=== PATIENT | female | born 1985 | race Caucasian/White ===

== ENCOUNTER 2016-07-14 09:48 | Emergency (ER) | payer OTHER ==
[~2016-07-14] VITALS: Ht 157.5 cm; Wt 79.4 kg
[2016-07-14 09:53] VITALS: BP 141/86
--- NOTE | 2016-07-14 10:13 | ED INFLUENZA/URI COMPLAINT ---
History of Present Illness General Chief Complaint: Upper Respiratory Sx/Fever Stated Complaint: COUGH Source: patient Exam Limitations: no limitations Vital Signs & Intake/Output Vital Signs & Intake/Output Vital Signs Date Time Temp Pulse Resp B/P Pulse O2 O2 Flow FiO2 Ox Delivery Rate 07/14 0953 98.7 100 18 141/86 98 Room Air Allergies Coded Allergies: ibuprofen (Severe, difficulty swallowing and swelling 07/14/16) MDX - Juniper (JUNIPER) (UNKNOWN 05/19/11) MDX - Loratadine (From CLARITIN) (UNKNOWN 05/19/11) Reconcile Medications Albuterol Sulfate (Ventolin Hfa) 90 MCG HFA.AER.AD 2 PUF INH Q4-6 PRN PRN WHEEZING/SHORTNESS OF BREATH Azithromycin 250 MG TABLET 1 DP PO AD lung infection 2 the first day followed by 1 for days 2-5 Benzonatate (Tessalon Perle) 100 MG CAPSULE 1 CAP PO TID PRN COUGH Methylprednisolone. (Medrol) 4 MG TAB.DS.PK 1 DP PO AD breathing Triage Note: 31 YO FEMALE TO TRIAGE C/O PRODUCTIVE COUGH SINCE WEDNESDAY. STATES SPUTUM IS GREEN IN COLOR. C/P PRESSURE TO BILATERAL EARS STARTING TODAY. DENIES FEVERS. Triage Nurses Notes Reviewed? yes : No Patient currently breastfeeds: No HPI: Patient is a 31 year old female presents complaining of cough with green sputum production onset on Wednesday. Symptoms progressively worsening. Taking Nyquil with no improvement. Midsternal pain when coughing, no chest pain otherwise. Mild associated wheezing and shortness of breath. Cough is currently severe, pain is mild. Denies fevers, chills, nausea, vomiting. (ZACK PENNY) Past History Travel History Traveled to [place] past 21 day No Medical History Any Pertinent Medical History? 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 No (ZACK PENNY) Review of Systems Review of Systems Constitutional: Denies: chills, fever. EENTM: Reports: no symptoms. Respiratory: Reports: see HPI. Cardiovascular: Reports: chest pain (with cough). GI: Denies: abdominal pain, nausea, vomiting. Genitourinary: Reports: no symptoms. Musculoskeletal: Reports: no symptoms. Skin: Reports: no symptoms. Neurological/Psychological: Reports: no symptoms. Hematologic/Endocrine: Reports: no symptoms. Immunologic/Allergic: Reports: no symptoms. (ZACK PENNY) Physical Exam Physical Exam General Appearance: well developed/nourished, alert, awake Head: atraumatic, normal appearance Eyes: Bilateral: normal appearance, PERRL, EOMI. Ears, Nose, Throat: normal ENT inspection, moist mucous membrane, hearing grossly normal, Tympanic normal Neck: normal inspection, supple, full range of motion Respiratory: mild diffuse end expiratory wheezing. Midsternal tenderness that reproduces patient's pain. Cardiovascular: regular rate/rhythm Gastrointestinal: soft, non-tender Back: normal inspection, normal range of motion Extremities: normal inspection, normal capillary refill, normal range of motion, no edema Neurologic/Psych: no motor/sensory deficits, awake, alert, oriented x 3, normal gait, normal mood/affect Skin: intact, normal color, warm/dry Lymphatic: no anterior cervical renee Core Measures Severe Sepsis Present: No Septic Shock Present: No (ZACK PENNY) Progress Differential Diagnosis: influenza, pneumonia, sinusitis, bronchitis Plan of Care: Patient nontoxic appearing, no acute respiratory distress on exam. Oxygen saturation 98% on room air. Labs and imaging deferred secondary to exam, appears stable for outpatient management. Will treat empirically. Patient provided with information to establish a primary care doctor. Initial ED EKG: none (ZACK PENNY) Departure Departure Time of Disposition: 1024 Disposition: HOME OR SELF CARE Condition: Stable Clinical Impression Primary Impression: Bronchitis Referrals: KATHY HENSLEY,GIOVANY LANG MD,ELISABET [place]. PATIENT HAS NO PRIMARY CARE DR (PCP/Family) Additional Instructions: Drink plenty of fluids and rest. Follow up with one of the primary care doctors listed in your discharge paperwork to establish a doctor and for further evaluation. Call today for appointment. Return to the ER if breathing worsening, unable to stay hydrated or worsening of symptoms. Departure Forms: Customer Survey General Discharge Information Prescriptions: Current Visit Scripts Methylprednisolone. (Medrol) 1 DP PO AD #1 DP Benzonatate (Tessalon Perle) 1 CAP PO TID PRN COUGH #21 CAP Albuterol Sulfate (Ventolin Hfa) 2 PUF INH Q4-6 PRN PRN WHEEZING/SHORTNESS OF BREATH #1 INHAL Azithromycin 1 DP PO AD #6 TAB 2 the first day followed by 1 for days 2-5 (URBANO SETH,ZACK) PA/PROPERTY PORTFOLIO OFFICER Co-Sign Statement Statement: ED Attending supervision documentation- [] I saw and evaluated the patient. I have also reviewed all the pertinent lab results and diagnostic results. I agree with the findings and the plan of care as documented in the PA's/PROPERTY PORTFOLIO OFFICER's documentation. [X] I have reviewed the ED Record and agree with the PA's/PROPERTY PORTFOLIO OFFICER's documentation. [] Additions or exceptions (if any) to the PAs/PROPERTY PORTFOLIO OFFICER's note and plan are summarized below: [] (ULISES HENSLEY,REKHA)
[2016-07-14] MEDS ORDERED: VENTOLIN HFA18 GM INH (10:27)
[2016-07-14] MEDS ORDERED: AZITHROMYCIN250 M1 PO (10:27)
[2016-07-14] MEDS ORDERED: TESSALON PERLE100 M1 PO (10:27)
[2016-07-14] MEDS ORDERED: MEDROL4 M2 PO (10:27)
== END 2016-07-14 10:34 ==
LOC: ERH 09:48
DX: J40 Bronchitis, not specified as acute or chronic (principal)

== ENCOUNTER 2016-09-18 18:12 | Emergency (ER) | payer OTHER ==
[~2016-09-18] VITALS: Ht 157.5 cm; Wt 79.4 kg
[~2016-09-18 18:12] MED LIST: AZITHROMYCIN250 M1 PO; MEDROL4 M2 PO; TESSALON PERLE100 M1 PO; VENTOLIN HFA18 GM INH
--- NOTE | 2016-09-18 19:34 | ED EAR COMPLAINT ---
History of Present Illness General Chief Complaint: Ear Complaints Stated Complaint: EAR PAIN Source: patient Exam Limitations: no limitations Vital Signs & Intake/Output Vital Signs & Intake/Output Vital Signs Date Time Temp Pulse Resp B/P Pulse O2 O2 Flow FiO2 Ox Delivery Rate 09/18 2046 97.5 90 18 110/75 98 Room Air 09/18 2033 Room Air 09/18 1833 97.9 108 18 118/84 98 Room Air Allergies Coded Allergies: ibuprofen (Severe, difficulty swallowing and swelling 07/14/16) juniper tar (HIVES 09/18/16) loratadine (From CLARITIN) (HIVES 09/18/16) Reconcile Medications Amoxicillin/Potassium Clav (Augmentin 875-125 Tablet) 875 MG-125 MG TABLET 1 TAB PO BID OTITIS MEDIA Dextran 70/Hypromellose (Artificial Tears) 1 EACH DROPERETTE 1 DROP OPH PRN BOTH EYES (Reported) Diphenhydramine HCl (Benadryl) 25 MG CAPSULE 2 CAP PO BID RED EYES (Reported) Fluticasone Propionate (Flonase Allergy Relief) 50 MCG/ACTUATION SPRAY.SUSP 2 SPRAY LOGAN DAILY CONGESTION Triage Note: TRIAGE: RIGHT EAR PAIN, NASAL CONGESTION, RED EYES, SHAKING, FATIGUE. HEARING MUFFLED. DENIES FEVERS AT HOME, AFEBRILE IN TRIAGE. DENIES DIZZINESS. +N/-V/-D. REPORTS URINARY URGENCY, BUT DENIES PAIN. DENIES PAIN. Triage Nurses Notes Reviewed? yes Onset: Gradual Duration: constant Timing: recent history Severity: severe Severity Numbers: 7 : No Patient currently breastfeeds: No HPI: Patient is a 31-year-old female who presents to emergency room with a 2 day history of gradual onset of nasal congestion had congestion and right ear pain voice hoarseness. Patient also has complaining of generalized weakness fatigue and chills and body aches Positive sick contacts at home. Denies any sore throat cough chest pain shortness of breath neck pain neck stiffness (WALT ARREOLA) Past History Travel History Traveled to [place] past 21 day No Medical History Any Pertinent Medical History? 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 No (WALT ARREOLA) Review of Systems Review of Systems Constitutional: Reports: see HPI, chills. EENTM: Reports: see HPI, ear pain, nasal congestion. Denies: ear discharge, ear redness, throat pain, throat swelling. Respiratory: Reports: see HPI. Denies: cough. Cardiovascular: Reports: no symptoms. GI: Reports: see HPI. Genitourinary: Reports: no symptoms. Musculoskeletal: Reports: see HPI, joint pain. Skin: Reports: no symptoms. Neurological/Psychological: Reports: no symptoms. Hematologic/Endocrine: Reports: no symptoms. Immunologic/Allergic: Reports: no symptoms. All Other Systems: Reviewed and Negative (WALT ARREOLA) Physical Exam Physical Exam General Appearance: mild distress Ears: Left: canal normal, Tympanic normal. Right: Tympanic red. Comments: Well-developed well-nourished person in no acute distress HEENT:, extraocular motion intact, no nystagmus. Pupils equally round and reactive to light and accommodation. Nose is atraumatic. . Pharynx normal. No swelling or edema. Neck: Supple, no lymphadenopathy, normal range of motion without pain or tenderness Back: Nontender, no CVA tenderness. Cardiovascular: Regular rate and rhythms no murmurs rubs or gallops, normal JVP Respiratory: Chest nontender. No respiratory distress.breath sounds clear to auscultation bilaterally Abdomen: Soft, nontender nondistended, no appreciable organomegaly. Normal bowel sounds. No ascites Extremity: No edema, no calf tenderness to palpation, normal and equal pulses. Neuro: Alert oriented x3, motor sensory normal, Skin: No appreciable rash on exposed skin, skin is warm and dry. Psych: Mood and affect is normal, memory and judgment is normal. (WALT ARREOLA) Progress Differential Diagnoses I considered the following diagnoses in my evaluation of the patient: [Viral syndrome, sinusitis, , UTI, appendicitis, meningitis, mastoiditis, otitis media, otitis externa, pharyngitis,] Plan of Care: Orders Procedure Date/time Status URINE 09/19 1831 Complete URINALYSIS 09/19 1831 Complete Laboratory Tests 09/18/16 2001: Urine Color YEL, Urine Clarity HAZY H, Urine pH 6.0, Ur Specific [place] 1.020, Urine Protein NEG, Urine Ketones NEG, Urine Nitrite NEG, Urine Bilirubin NEG, Urine Urobilinogen 1.0, Ur Leukocyte Esterase SMALL H, Ur Microscopic SEDIMENT EXAMINED, Urine RBC RARE, Urine WBC 5-10 H, Ur Epithelial Cells MANY H, Urine Bacteria FEW H, Urine Hemoglobin NEG, Urine Glucose NEG, Urine Test NEGATIVE Patient has concerns of right sided otitis media. No abdominal point tenderness noted on exam. Urine cultures pending No concerns of meningitis patient is afebrile (WALT ARREOLA) Initial ED EKG: none (WALT ARREOLA) Departure Departure Disposition: HOME OR SELF CARE Condition: Stable Clinical Impression Primary Impression: Otitis media, right Referrals: KATHY HENSLEY,GIOVANY (PCP/Family) Additional Instructions: As discussed begin the prescription of Flonase for nasal congestion and Augmentin as directed for the full course. Begin [id number] Sudafed for congestion. Prescriptions waiting at [facility] pharmacy. Begin [id number] Tylenol for pain and inflammation in future fevers. Begin treating plenty of water for hydration. If no better on Wednesday follow-up with her primary care doctor. If symptoms worsen return to emergency room Departure Forms: Customer Survey General Discharge Information Prescriptions: Current Visit Scripts Amoxicillin/Potassium Clav (Augmentin 875-125 Tablet) 1 TAB PO BID #20 TAB Fluticasone Propionate (Flonase Allergy Relief) 2 SPRAY LOGAN DAILY #1 BOT (WALT ARREOLA) PA/PRESCHOOL PROGRAM DIRECTOR Co-Sign Statement Statement: ED Attending supervision documentation- [] I saw and evaluated the patient. I have also reviewed all the pertinent lab results and diagnostic results. I agree with the findings and the plan of care as documented in the PA's/PRESCHOOL PROGRAM DIRECTOR's documentation. [X] I have reviewed the ED Record and agree with the PA's/PRESCHOOL PROGRAM DIRECTOR's documentation. [] Additions or exceptions (if any) to the PAs/PRESCHOOL PROGRAM DIRECTOR's note and plan are summarized below: [] (ULISES HENSLEY,REKHA)
[2016-09-18] MEDS ORDERED: BENADRYL25 MG PO (20:05)
[2016-09-18] MEDS ORDERED: ARTIFICIAL TEA1 EACH OPH (20:06)
[2016-09-18] MEDS ORDERED: FLONASE ALLERG9.9 ML NAS (20:21)
[2016-09-18] MEDS ORDERED: AUGMENTIN 875-1 EACH PO (20:21)
[2016-09-18 20:47] VITALS: BP 110/75
== END 2016-09-18 21:00 ==
LOC: ERH 18:12
DX: H66.91 Otitis media, unspecified, right ear (principal)
CPT/HCPCS: 81001; 81025

== ENCOUNTER 2017-09-23 08:06 | Inpatient (IN) | payer OTHER ==
[~2017-09-23] VITALS: Ht 157.5 cm; Wt 102.5 kg
[~2017-09-23 08:06] MED LIST changes: +ARTIFICIAL TEA1 EACH OPH; +AUGMENTIN 875-1 EACH PO; +BENADRYL25 MG PO; +FLONASE ALLERG9.9 ML NAS
[2017-09-23] MEDS ORDERED: PRENATAL TABLE1 EAC2 PO (08:29)
[2017-09-23 09:06] LABS: ABSOLUTE BASOPHIL COUNT 0 /CUMM (0.0-0.2); ABSOLUTE EOSINOPHIL COUNT 0 /CUMM (0.0-0.7); ABSOLUTE GRANULOCYTE CT 6.9 /CUMM (1.4-6.5); ABSOLUTE LYMPH COUNT 1.1 /CUMM (1.2-3.4); ABSOLUTE MONOCYTE COUNT 0.4 /CUMM (0.10-0.60); BASOPHIL % 0.2 % (0.0-2.0); EOSINOPHIL % 0.3 % (0-5); GRANULOCYTE % 82.2 % (42.2-75.2); HEMATOCRIT 30.9 % (37-47); MEAN CORPUSCULAR HGB 27.2 PG (27.0-31.0); MEAN CORPUSCULAR HGB CONC 33.2 G/DL (33.0-37.0); MEAN PLATELET VOLUME 10.6 FL (7.4-10.4); RBC DISTRIBUTION WIDTH 14.5 % (11.5-14.5); RED BLOOD CELL CT 3.76 /CUMM (4.20-5.40); WHITE BLOOD CELL COUNT 8.3 /CUMM (4.8-10.8)
[2017-09-23 09:28] LABS: PLATELET COUNT 182 /CUMM (130-400)
--- NOTE | 2017-09-23 09:43 | History & Physical ---
General Information and HPI MD Statement: I have seen and personally examined GLORIA FERNANDO and documented this H&P. The patient is a 32 year old female at [41] weeks and [1] days gestation who presented with a chief complaint of [IOL]. Source of Information: patient Exam Limitations: no limitations History of Present Illness: 32yo, , 41 1/7wks, here for IOL due to postdate. she has no complaints today, denies ctxs, no VB or LOF, reports GFM. care started at 17 wks, issues: maternal obesity: she had weekly testing since 32 wks, GBS positive Allergies/Medications Allergies: Coded Allergies: ibuprofen (Severe, difficulty swallowing and swelling 07/14/16) loratadine (From CLARITIN) (Intermediate, HIVES 09/25/17) Uncoded Allergies: JUNIPER PLANT (Intermediate, HIVES 09/25/17) Home Med list Vit No.130/Iron/FA ( Tablet) 27 MG IRON-800 MCG TABLET 1 TAB PO DAILY (Reported) Compliance With Home Meds: GOOD Past History mail manager History : 3 Para: 2 Last Menstrual Period: 12/09/2016 Estimated Delivery Date: 09/15/2017 Past mail manager History: non-contributory Past Pregnancies Past Pregnancies: Date of Delivery: 05/2009,05/2011 Gestational Age: 40wks Weight: 8lb2 oz , 8lb3oz Type of Delivery: vaginal Anesthesia: epidural Complications: none Medical History Blood Transfusion Hx: No Neurological: NONE EENT: NONE Cardiovascular: NONE Respiratory: NONE Gastrointestinal: NONE Hepatic: NONE Renal: NONE Musculoskeletal: NONE Psychiatric: NONE Endocrine: NONE Blood Disorders: NONE Cancer(s): NONE 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 EENTM: Reports: no symptoms. Cardiovascular: Reports: no symptoms. Respiratory: Reports: no symptoms. GI: Reports: no symptoms. Genitourinary: Reports: no symptoms. Musculoskeletal: Reports: no symptoms. Skin: Reports: no symptoms. Neurological/Psychological: Reports: no symptoms. Hematologic/Endocrine: Reports: no symptoms. Immunologic/Allergic: Reports: no symptoms. All Other Systems: Reviewed and Negative Date of LMP: 12/09/16 Exam & Diagnostic Data Last 24 Hrs of Vital Signs/I&O Intake & Output 09/23 1600 09/23 0800 09/23 0000 Intake Total Output Total Balance Patient 102.512 kg Weight Obstetric Exam Wgt Gained During : 30lb Pelvimetry: tested for 8lb3oz Dilation (cm): 1 Effacement (%): 30 Station: -4 Membranes: intact Fluid: unknown Fundal Height (cm): 41 Multiple Gestation? No Contractions: occasional Infant #1 - FHR Baseline: 130 Category: 1 Estimated Weight: 3600g Presentation: vertex Patient for Induction? Yes Guardado Score Guardado Score Response Value Cervix Position: posterior 0 Cervix Consistency: medium 1 Cervix Effacement: 30-50% 1 Cervix Dilation: 1-2 cm 1 Cervix Station: -3 0 Total 3 Physical Exam: VSS General: NAD abdomen: gravid, soft, nontender Ext: DCT (-) Labs Blood Type & Rh: A positive Antibody Screen: negative Hct/Hgb & Platelets #1: 12.4/40.1%,PLT [id number] Hct/Hgb & Platelets #2: 10.5/34.8%,[id number] Rubella: immune VDRL #1: negative VDRL #2: negative HbsAg: negative HIV #1: negative HIV #2 negative 1 Hr P Group B Strep: positive Initial Ultrasound: IUP at 17wks Anatomy Ultrasound: nl Genetic Testing: declined Last 24 Hrs of Labs/Rex: Laboratory Tests 09/23/17 0822: CBC w Diff NO MAN DIFF REQ, RBC 3.76 L, MCV 82.0, MCH 27.2, MCHC 33.2, RDW 14.5 , MPV 10.6 H, Gran % 82.2 H, Lymphocytes % 12.8 L, Monocytes % 4.5, Eosinophils % 0.3, Basophils % 0.2, Absolute Granulocytes 6.9 H, Absolute Lymphocytes 1.1 L, Absolute Monocytes 0.4, Absolute Eosinophils 0, Absolute Basophils 0, Urinalysis LIGHT H, Urine Color YEL, Urine Clarity HAZY H, Urine pH 6.0, Ur Specific [place] 1.025, Urine Protein NEG, Urine Ketones NEG, Urine Nitrite NEG, Urine Bilirubin NEG, Urine Urobilinogen 0.2, Ur Leukocyte Esterase NEG, Ur Microscopic SEDIMENT EXAMINED, Urine RBC 1-3, Urine WBC 1-3 H, Ur Epithelial Cells MANY H, Urine Bacteria MOD H, Urine Mucus MOD H, Urine Hemoglobin NEG, Urine Glucose NEG Assessment/Plan Assessment/Plan: 32yo, , 41 1/7wks, IOL 1. admit pt, admisison labs 2. cervical ripening for IOL d/w pt in detail , she understand an dagreed. R/B/A of misoprostol d/w pt, she understand and agreed, informed consent obtained. 1 st does of misoprostol 25mcg placed at 8: 45AM 3. antibiotics for GBS prophylaxis dueing labor 4. will monitor closely As Ranked By This Provider Problem List: 1. 2. Post-dates Core Measures Venous Thromboembolism VTE Risk Factors / No Mechanical VTE Prophylaxis d/t LowRisk-No Interven Req'd No VTE Pharm Prophylaxis d/t LowRisk-No Interven Req'd Attending MD Review Statement Attending Statement Attending MD Statement: examined this patient, discussed with family, discussed w/nursing
--- NOTE | 2017-09-23 13:45 | PN- OBGYN ---
Surgical Brief Attending Note Brief Attending Note: late entry for 1 PM pt c/o cramping pain on TOCO: ctxs 3-4 min, FHR cat.I will defer 2nd dose of misoprostol. monitor closely.
--- NOTE | 2017-09-23 20:54 | PN- OBGYN ---
Surgical Brief Attending Note Brief Attending Note: pt c/o she felt more ctxs pain and more frequent than before on TOCO: ctxs q 4-6 min, FHR assuring cervix 1cm./50%/high will observe for now, may have theraputic rest at night.
--- NOTE | 2017-09-24 12:23 | PN- OBGYN ---
Surgical Brief Attending Note Brief Attending Note: After sleeping all night heart rate tracing was reactive with rare uterine contractions patient was noted to be 2 cm percent -2 position therefore Pitocin was started
[2017-09-25 08:57] LABS: ABSOLUTE BASOPHIL COUNT 0 /CUMM (0.0-0.2); ABSOLUTE EOSINOPHIL COUNT 0 /CUMM (0.0-0.7); ABSOLUTE GRANULOCYTE CT 8.6 /CUMM (1.4-6.5); ABSOLUTE LYMPH COUNT 1.1 /CUMM (1.2-3.4); ABSOLUTE MONOCYTE COUNT 0.4 /CUMM (0.10-0.60); BASOPHIL % 0.3 % (0.0-2.0); EOSINOPHIL % 0.2 % (0-5); HEMATOCRIT 28.7 % (37-47); MEAN CORPUSCULAR HGB 27.4 PG (27.0-31.0); MEAN CORPUSCULAR HGB CONC 32.9 G/DL (33.0-37.0); MEAN CORPUSCULAR VOLUME 83.2 FL (81.0-99.0); MEAN PLATELET VOLUME 10.8 FL (7.4-10.4); RBC DISTRIBUTION WIDTH 14.7 % (11.5-14.5); RED BLOOD CELL CT 3.45 /CUMM (4.20-5.40); WHITE BLOOD CELL COUNT 10.2 /CUMM (4.8-10.8)
[2017-09-25 10:37] LABS: GRANULOCYTE % 84.5 % (42.2-75.2); PLATELET COUNT 162 /CUMM (130-400)
--- NOTE | 2017-09-25 10:59 | PN- Post Delivery/GYN ---
Subjective Subjective: feeling well Review of Systems Constitutional: Reports: no symptoms. Denies: chills, fever. EENTM: Denies: blurred vision, double vision, visual changes. Neurological/Psychological: Denies: anxiety, depressed. Objective Last 24 Hrs of Vital Signs/I&O vss Physical Exam General Appearance Alert, Oriented X3, Cooperative, No Acute Distress Pelvic (FEMALE) lochia serosanganous Current Medications: Current Medications Sig/Anita Start time Last Medication Dose Route Stop Time Status Admin Acetaminophen 650 MG Q4P PRN 09/24 1815 AC 09/25 PO 0830 Docusate Sodium 100 MG BID PRN 09/24 181 AC PO Fentanyl Citrate 100 MCG .STK-MED ONE 09/24 1153 DC IM 09/24 1154 Hydroxyzine HCl 50 MG AT BEDTIME NEED.. 09/24 1815 AC PO Lactated Ringer's 1,000 ML Q8H 09/23 0815 DC 09/24 IV 1419 Magnesium Hydroxide 30 ML DAILY PRN 09/24 181 AC PO Misoprostol 25 MCG Q4P PRN 09/23 0900 DC 09/23 VAG 0845 Oxycodone/ 1 TAB Q3P PRN 09/24 1815 AC Acetaminophen PO Oxytocin 20 UNITS Q5H 09/24 1815 DC 09/24 Lactated Ringer's 1,000 ML IV 09/24 2314 1805 Oxytocin 30 UNITS PER PROTOCL 09/24 0815 DC 09/24 Lactated Ringer's 500 ML IV 0800 Penicillin G 2.5 MU Q4H 09/24 0400 DC 09/24 Potassium IV 1700 Dextrose/Water 100 ML Last 24 Hrs of Labs/Rex: Laboratory Tests 09/25/17 0755: CBC w Diff NO MAN DIFF REQ, RBC 3.45 L, MCV 83.2, MCH 27.4, MCHC 32.9 L, RDW 14.7 H, MPV 10.8 H, Gran % 84.5 H, Lymphocytes % 10.6 L, Monocytes % 4.4, Eosinophils % 0.2, Basophils % 0.3, Absolute Granulocytes 8.6 H, Absolute Lymphocytes 1.1 L, Absolute Monocytes 0.4, Absolute Eosinophils 0, Absolute Basophils 0 Microbiology 09/24 1255 URINE ROUT: Urine Culture - RES Assessment/Plan Assessment/Plan ppd #1 vss afebrile Problem List: 1. Anemia of 2. Post-dates Attending MD Review Statement Attending Statement Attending MD Statement: examined this patient, discussed with nursing
--- NOTE | 2017-09-26 08:27 | PN- OBGYN ---
Surgical Brief Attending Note Brief Attending Note: PPD #2 vss afebrile tollerating po's nursing well lochia serosanganous 2+ pedal edema no MUNOZ, CP, Back pain taking tylenol for cramps plan d/c home
== END 2017-09-26 11:10 | DRG 560 ==
LOC: GNO 08:06
PROVIDERS: Obstetrics & Gynecology
PROC: 3E033VJ Introduction of Other Hormone into Peripheral Vein, Percutaneous Approach (ICD-10-PCS; principal; 2017-09-24)
PROC: 10E0XZZ Delivery of Products of Conception, External Approach (ICD-10-PCS; 2017-09-24)
DX: O48.0 Post-term pregnancy (principal); O69.81X0 Labor and delivery complicated by cord around neck, without compression, not applicable or unspecified; Z3A.41 41 weeks gestation of pregnancy; Z37.0 Single live birth
CPT/HCPCS: GNOP; GNOS; 81001; 87086; J7120